=== PATIENT | female | born 2000 | race Caucasian/White ===

== ENCOUNTER → 2021-03-29 | Outpatient (CLI) | payer SELFPAY ==
[2021-03-29 12:42] LABS: VAL ACID 51 mcg/mL (50-100)
== END ==
LOC: LAB 10:44
PROVIDERS: ATTEND Nurse Practitioner Family
DX: Z79.899 Other long term (current) drug therapy (principal)
CPT/HCPCS: 36415; 80164

== ENCOUNTER → 2021-06-07 | Outpatient (CLI) | payer SELFPAY ==
[2021-06-07 12:20] LABS: VAL ACID 50 mcg/mL (50-100)
== END ==
LOC: LAB 10:48
PROVIDERS: ATTEND Nurse Practitioner Family
DX: Z79.899 Other long term (current) drug therapy (principal)
CPT/HCPCS: 36415; 80164